=== PATIENT | male | born 1980 | race Caucasian/White ===

== ENCOUNTER → 2019-03-05 | Outpatient (CLI) | payer SELFPAY ==
[2017-04-29 21:44] VITALS: BMI 22.6
[2019-03-10 12:06] LABS: Alternaria tenuis <0.10 kU/L (Class 0); Ash, White <0.10 kU/L (Class 0); Aspergillus fumigatus <0.10 kU/L (Class 0); Bermuda Grass <0.10 kU/L (Class 0); Birch <0.10 kU/L (Class 0); Black Walnut <0.10 kU/L (Class 0); Cat Hair / Dander,Stand <0.10 kU/L (Class 0); Cedar, Mountain <0.10 kU/L (Class 0); Cladosporium herbarum <0.10 kU/L (Class 0); Cockroach, American <0.10 kU/L (Class 0); Cottonwood <0.10 kU/L (Class 0); D farinae Mite <0.10 kU/L (Class 0); D pteronyssinus <0.10 kU/L (Class 0); Dog Epithelia <0.10 kU/L (Class 0); Elm, American White <0.10 kU/L (Class 0); Immunoglobulin E < 2 IU/mL (6-495); Maple/Box Elder <0.10 kU/L (Class 0); Mulberry, White <0.10 kU/L (Class 0); Oak, White <0.10 kU/L (Class 0); Pecan <0.10 kU/L (Class 0); Penicillium Notatum <0.10 kU/L (Class 0); Pigweed, Rough <0.10 kU/L (Class 0); Ragweed, Short/Common <0.10 kU/L (Class 0); Russian Thistle <0.10 kU/L (Class 0); Sheep Sorrel <0.10 kU/L (Class 0); Sycamore, American <0.10 kU/L (Class 0); Timothy Grass <0.10 kU/L (Class 0)
[2019-03-10 12:49] LABS: Mouse Urine <0.10 kU/L (Class 0)
[2019-03-10 20:06] LABS: Chicken <0.10 kU/L (Class 0); Potato, White <0.10 kU/L (Class 0)
[2019-03-12 18:13] LABS: Beef <0.10 kU/L (Class 0); Gluten <0.10 kU/L (Class 0)
== END | disposition home or self-care (01) ==
PROVIDERS: Family Provider Family Medicine; PCP Family Medicine; Referring Provider Otolaryngology; Visit Provider Otolaryngology
DX: T78.40XA Allergy, unspecified, initial encounter (principal)
CPT/HCPCS: 36415; 82785; 86003

== ENCOUNTER 2022-08-25 07:53 | Emergency (ER) | payer MEDICAID, SELFPAY ==
[2022-08-25 07:54] VITALS: BP 111/64; PULSE 132; RESP 17; TEMP 35.6; O2SAT 98; BMI 22.1
--- NOTE | 2022-08-25 08:06 | EX.ED.DYSGE1 ---
HPI History of Present Illness Chief Complaint: Weakness Detail of Chief Complaint: Influenza a, nausea vomiting, generalized weakness Informant: patient Onset/Context/Timing Onset: Days Context: Sudden Onset Timing: Continuous and Waxes and wanes Quality: Flulike symptoms with nausea and vomiting Location: Respiratory GI Current Severity: Mild Maximum Severity: Severe Worsened by: Nothing specific Relieved by: Nothing Associated Symptoms Associated Symptoms: Thirst, dry mouth, lightheadedness Narrative Narrative: Patient is a 42-year-old male who states he was seen and diagnosed with influenza A. He was seen at outside facility on Sunday. He denies recent fever. He does report chills. He does report vomiting several times per day. He states he was prescribed Zofran ODT with no benefit. He has not had a bowel movement in 2 to 3 days. He does have mild upper respiratory symptoms. He has a mild cough. He denies headache, photophobia, neck pain or neck stiffness. He was unaware that he had a rash on his forearm. He denies dysuria, frequency, urgency or hematuria. He believes he has not urinated in 2 days. Prior similar symptoms: Yes Recent Illness/Hospitalization: Yes PFSH PFSH Medical History no medical history Home Medications NK 08/25/22 [History Last Taken Unknown] Allergy/AdvReac Type Severity Reaction Status Date / Time red dye Allergy Rash Verified 08/25/22 07:54 Surgical History no surgical history no surgical history Social History (Updated 08/25/22 @ 08:[address] Boris Rousseau MD) household members: none Smoking Status: Former smoker alcohol intake: current ROS ROS ED Constitutional Constitutional ED: Reports chills; Denies fever(s), subjective, sweats or weight loss Eyes Eyes: Denies blurry vision, change in vision or diplopia ENT ENT ED: Reports rhinorrhea and sore throat; Denies ear pain Cardiovascular Cardiovascular: Denies chest pain, orthopnea, palpitations, paroxysmal nocturnal dyspnea or racing heartbeat Respiratory/Chest Respiratory/Chest: Reports cough; Denies dyspnea, dyspnea on exertion, orthopnea or paroxysmal nocturnal dyspnea Gastrointestinal Gastrointestinal: Reports abdominal pain, constipation, nausea and vomiting; Denies diarrhea or melena Genitourinary Genitourinary ED: Denies dysuria or urinary frequency Musculoskeletal Musculoskeletal: Denies arthralgias, back pain, myalgias or neck pain Integumentary Denies Abrasions or rash Neurologic Neurologic: Denies headache(s), paresthesias or weakness Endocrine Endocrinology: Denies cold intolerance or heat intolerance Hematologic/Lymphatic Hematologic/Lymphatic: Reports systems reviewed and no addt'l complaints, except as documented EXAM Physical Exam Const Vital Signs: 08/25/22 07:54 08/25/22 08:00 08/25/22 08:22 Temperature 96.0 F L 96.0 F L Temperature Source Temporal Temporal Pulse Rate 132 H 72 Respiratory Rate 17 18 Respiratory Effort Normal Non-Labored Respiratory Pattern Normal Blood Pressure 111/64 111/64 Blood Pressure Mean 79 79 Pulse Ox 98 96 Oxygen Delivery Method Room Air Room Air Positive well nourished and well developed General Appearance ED: well developed and NAD; Negative for cyanotic or diaphoretic HEENT Reports dry mucous membranes Mouth ED: Yes dry mucous membranes Mouth: dry mucous membranes Eyes PERRL and EOMs intact bilaterally General Eye ED: Negative for pale conjunctiva or scleral icterus Neck no lymphadenopathy, supple and no JVD Resp normal respiratory effort and clear to auscultation bilaterally Cardio regular rhythm, S1 normal heart sound, S2 normal heart sound and no murmurs Rate: tachycardic GI non-tender, non-distended and no masses; Negative for hepatosplenomegaly Auscultation: hyperactive bowel sounds Palpation: soft Back/Spine no CVA tenderness Extremity normal to inspection General Extremety ED: Negative for edema or tenderness General Extremity: Negative for edema Neuro oriented x3, CN's II-XII intact bilaterally and no sensory deficits noted Sensorium / Orientation: alert Skin No no rashes or lesions noted, no wounds and No skin turgor normal Skin Narrative: Patient has a lenticular rash and has delayed capillary refill. Cap refill is 3 to 4 seconds. General Skin Exam: Negative for jaundice MDM MDM MDM Narrative Medical decision making narrative: Patient clinically is dehydrated, tachycardic and mottled. IV fluids were ordered. Since there is a history of acute kidney injury from prior nausea and vomiting will obtain basic metabolic panel to assess BUN/creatinine, CO2 anion gap and electrolytes. He will receive 4 mg of Zofran IV push for his nausea and vomiting. He was placed on the monitor. Suspect this is all related to influenza A. Patient did pass p.o. challenge. Patient has urinated after second liter of normal saline. Lab Data Attestation: I reviewed the patient's lab results. Lab results narrative: Hemoglobin is significantly elevated from baseline. Suspect this is due to hemoconcentration from dehydration. Basic metabolic panel reveals hyponatremia, hypokalemia and hypochloremia. CO2 is elevated. BUN and creatinine are elevated at 67 and 2.0 respectively. GFR is 39. BUN/creatinine ratio is greater than 33-1 which would indicate dehydration. BUN and creatinine are elevated from approximate 4 years ago. BUN/creatinine at that time was normal. Patient's laboratory findings are consistent with him not being able to drink or eat anything for the past 2 days. Labs: Laboratory Results - last 24 hr 08/25/22 08/25/22 08:16 08:16 WBC 9.2 RBC 6.87 H Hgb 20.6 H* Hct 58.0 H MCV 84.4 MCH 30.0 MCHC 35.5 RDW Std Deviation 39.9 RDW Coeff of Alex 13.2 Plt Count 353 MPV 10.9 Immature Gran % (Auto) 0.200 Neut % (Auto) 66.8 Lymph % (Auto) 15.8 L [place] % (Auto) 16.9 H Eos % (Auto) 0.1 Baso % (Auto) 0.2 Absolute Neuts (auto) 6.2 Absolute Lymphs (auto) 1.46 Nucleated RBC % 0 Sodium 129 L Potassium 3.3 L Chloride 81 L Carbon Dioxide 34.0 H Anion Gap 14 BUN 67 H Creatinine 2.00 H Estim Creat Clear Calc 42.82 Est GFR (MDRD) Af Amer 48 L Est GFR (MDRD) Non-Af 39 L BUN/Creatinine Ratio 33.5 H Glucose 198 H Calcium 10.1 Discharge Plan Triage Chief Complaint: Weakness ED Provider: Boris Rousseau Dx/Rx/DC Orders Clinical Impression: HUBER (acute kidney injury), Acute prerenal azotemia, Orthostatic hypotension, Severe dehydration, Influenza due to influenza virus, type A, human, Acute hyponatremia, Hypochloremia, Acute hypokalemia Instructions: Acute Kidney Failure Dc, ED Hypotension, Orthostatic Prescriptions: No Action NK Primary Care Provider: Rajesh Stahl Referrals: Rajesh Stahl MD [Primary Care Provider] - 3-5 Days Activity Restrictions/Additional Instructions: You will need to contact Dr. Stahl for repeat blood test in 3 to 5 days. If you begin to vomit again please come back Disposition Disposition: Home, Self Care
[2022-08-25] MEDS: 0.9% Normal Saline 1,000 ML 1000 ML IV ×2 (08:15→09:21)
[2022-08-25] MEDS: Ondansetron 4 MG/2 ML Vial IV (08:15)
[2022-08-25 08:22] VITALS: BP 111/64; PULSE 72; RESP 18; TEMP 35.6; O2SAT 96
[2022-08-25 08:29] LABS: Absolute Lymphocyte Count 1.46 X10^3/uL (0.83-4.51); Absolute Neutrophil Count 6.2 X10^3/uL (2.0-7.7); Basophil# 0.02 X10^3/uL; Basophil% 0.2 % (0-1); Eosinophil# 0.01 X10^3/uL; Eosinophils% 0.1 % (0-5); Hemoglobin 20.6 g/dL (13.0-16.5); Lymphocyte # 1.46 X10^3/ul (0.83-4.51); Lymphocyte % 15.8 % (19-41); Mean Corp Hgb Conc 35.5 g/dL (32-36); Mean Corpuscular Volume 84.4 fL (80-94); Mean Platelet Vol. 10.9 fl (6.2-12.0); Monocyte# 1.56 X10^3/uL; Monocyte% 16.9 % (0-10); NRBC Flagged by Analyzer 0 % (0-5); Neutrophil # 6.16 X10^3/uL (2.7-7.7); Neutrophil % 66.8 % (47-70); POSITIVE DIFFERENTIAL YES; Platelet Count 353 K/mm3 (150-450); RBC Distribution Width CV 13.2 % (11.6-14.6); RBC Distribution Width SD 39.9 fl (35.1-43.9); Red Blood Count 6.87 M/mm3 (4.6-6.2); White Blood Count 9.2 K/mm3 (4.4-11.0)
[2022-08-25 08:35] LABS: Differential Indicated SCAN CRITERIA MET
[2022-08-25 08:48] LABS: Anion Gap 14 (5-15); BUN 67 mg/dL (7-18); BUN/Creat Ratio 33.5 RATIO (10-20); Calcium,Total 10.1 mg/dL (8.5-10.1); Chloride 81 mmol/L (98-107); EST Glomerular Filtration Rate 39 mL/min (>60); Est Glom Filt Rate - Afr Amer 48 mL/min (>60); Estimated Creatinine Clearance 42.82 ml/min; Glucose 198 mg/dL (74-106); Potassium 3.3 mmol/L (3.5-5.1); Sodium Level 129 mmol/L (136-145)
[2022-08-25 10:04] VITALS: PULSE 77; RESP 16; O2SAT 98
[2022-08-25 10:27] VITALS: BP 125/88; PULSE 78; RESP 16; O2SAT 98
[2022-08-29 13:49] LABS: Pathologist Review Reviewed
== END 2022-08-25 10:28 | disposition home or self-care (01) ==
PROVIDERS: Emergency Provider Emergency Medicine; PCP Family Medicine; Visit Provider Emergency Medicine
DX: N17.9 Acute kidney failure, unspecified (principal); R79.89 Other specified abnormal findings of blood chemistry; I95.1 Orthostatic hypotension; E86.0 Dehydration; J10.1 Influenza due to other identified influenza virus with other respiratory manifestations; E87.1 Hypo-osmolality and hyponatremia; E87.6 Hypokalemia; E87.8 Other disorders of electrolyte and fluid balance, not elsewhere classified; Z87.891 Personal history of nicotine dependence
CPT/HCPCS: 80048; 85025; 96361; 96374; 99284; J7030; J2405

== ENCOUNTER 2022-11-23 09:10 | Emergency (ER) | payer OTHER, MEDICAID, SELFPAY ==
[2022-11-23 09:11] VITALS: BP 132/98; PULSE 75; RESP 16; TEMP 36.8; O2SAT 98; BMI 22.6
--- NOTE | 2022-11-23 09:36 | EDS_ITS ---
HPI History of Present Illness Chief Complaint: Nausea/Vomiting Narrative Narrative: 42-year-old male here for nausea and vomiting. Notes he has history of cyclic vomiting syndrome and vomiting for last several days. Symptoms are severe, constant with no alleviating factors PFSH PFSH Medical History no medical history Home Medications ondansetron 4 mg disintegrating tablet 4 mg PO Q8H PRN PRN Nausea #10 tabs 08/25/22 [Rx Last Taken Unknown] Allergy/AdvReac Type Severity Reaction Status Date / Time amoxicillin Allergy Rash Verified 11/23/22 09:13 red dye Allergy Rash Verified 08/25/22 07:54 Social History (Updated 08/25/22 @ 08:[address] Boris Rousseau MD) household members: none Smoking Status: Former smoker alcohol intake: current ROS ROS ED ROS Narrative Constitutional: Denies fever HEENT: Denies sore throat Neck: Denies neck pain Cardiovascular: Denies chest pain, syncope Respiratory: Denies shortness of breath GI: Endorses nausea and vomiting : Denies changes in urinary habits Musculoskeletal: Denies muscle or joint pain Neurologic: Denies numbness weakness or loss of sensation Skin denies rash EXAM Physical Exam Narrative Exam Narrative: Nursing triage notes reviewed, Vital signs reviewed Constitutional: please see mdm HENT: MMM Eyes: Pupils equal round and reactive to light, Extraocular muscles intact Neck: No stridor, no JVD, full neck ROM Lungs: Clear to auscultation, No wheezing or rales. No increased work of breathing, no conversational dyspnea, no accessory muscle use, no nasal flaring. No respiratory distress noted Heart: Regular rate and rhythm, No murmurs, No rubs and No gallops, 2+ distal pulses (radial, femoral, posterior tibial) in all extremities Abdomen: Soft, there is diffuse epigastric tenderness but no rigidity, rebound or guarding, no obvious peritoneal signs, no palpable pulsatile abdominal m asses, no auscultated abdominal bruit : No CVAT Extremities: No edema Neuro: No focal neurological deficits, cranial nerves II through XII intact, 5/5 strength in all extremities. Intact sensation to light touch in all extremities, 2+ reflexes bilateral patella dens. Normal gait. No ataxia. Skin: No rash or lesions noted Const Vital Signs: 11/23/22 09:11 11/23/22 11:28 Temperature 98.2 F Temperature Source Temporal Pulse Rate 75 65 Respiratory Rate 16 18 Blood Pressure 132/98 H 115/79 Blood Pressure Mean 109 91 Pulse Ox 98 100 Oxygen Delivery Method Room Air Room Air MDM MDM MDM Narrative Medical decision making narrative: Chief Complaint: External records reviewed: CT scan of the abdomen pelvis from 2014 shows mild left hydronephrosis 3.5 mm calculus I considered the following differential diagnosis: Dehydration, HUBER, acute surgical process the abdomen pelvis The patient abdominal exam was benign and not consistent with acute surgical pathology I obtained a broad lab work-up to further elucidate the etiology of patient complaints and to discern if the patient any life limiting etiology. Labs remarkable for evidence of acute pancreatitis but no evidence of obstructive hepatobiliary pathology. BMP showed evidence of hypokalemia consistent with vomiting no evidence of myocardial ischemia. Chest x-ray showed no evidence of Vesta-Lance tear or pneumomediastinum. Patient's vital signs improved. Was able to tolerate p.o. He is appropriate discharge home with pain medicine, clear liquid diet and follow-up with outpatient PCP and gastroenterology I treated the patient with IV nausea medicine, IV fluids. Factors affecting care: History of cyclic vomiting, acute renal failure, hypokalemia, GERD Social determinants of health: Current alcohol intake History obtained from others: Shared decision making: I will have a discussion with the patient and or visitors regarding risk/benefits of further testing or admission. They will be made aware of of the risk/benefits inherent in this decision they will be given the opportunity to voice understanding. Consults: None Lab Data Attestation: I reviewed the patient's lab results. Lab results narrative: CBC with leukocytosis suggestive of systemic inflammation, no anemia or thrombocytopenia BMP with moderate hypokalemia suggestive of dehydration likely secondary to nausea vomiting, no acute kidney injury, no elevated anion gap to suggest endorgan hypoperfusion LFTs show no evidence of hepatobiliary pathology. Troponin is negative, no evidence of myocardial ischemia Patient's lipase is elevated consistent with acute pancreatitis Labs: Laboratory Results - last 24 hr 11/23/22 11/23/22 11/23/22 09:55 09:55 09:55 WBC 16.7 H RBC 5.81 Hgb 17.2 H Hct 49.5 MCV 85.2 MCH 29.6 MCHC 34.7 RDW Std Deviation 38.1 RDW Coeff of Alex 12.4 Plt Count 389 MPV 11.0 Immature Gran % (Auto) 0.500 Neut % (Auto) 81.5 H Lymph % (Auto) 9.4 L [place] % (Auto) 8.4 Eos % (Auto) 0.0 Baso % (Auto) 0.2 Absolute Neuts (auto) 13.6 H Absolute Lymphs (auto) 1.58 Nucleated RBC % 0 Sodium 135 L Potassium 2.8 L Chloride 87 L Carbon Dioxide 37.0 H Anion Gap 11 BUN 27 H Creatinine 1.29 Estim Creat Clear Calc 67.69 Est GFR (MDRD) Af Amer 79 Est GFR (MDRD) Non-Af 65 BUN/Creatinine Ratio 20.9 H Glucose 170 H Calcium 10.8 H Total Bilirubin 0.80 Direct Bilirubin 0.21 AST 24 ALT 31 Alkaline Phosphatase 87 Troponin I High Sens 10 Total Protein 8.7 H Albumin 4.9 Globulin 3.8 Lipase 1227 H Radiography Chest X-Ray - ED: Read by ED Physician Diagnostic Testing: Clinical Impression(s) from Imaging Studies Chest X-Ray 11/23/22 10:49 IMPRESSION: No radiographic evidence of acute cardiopulmonary disease. Electronically Signed: Ct Alejandro MD at 11:05 EDT , I have personally reviewed the patient's chest x-ray. Chest x-ray is unremarkable for pulmonary edema, pneumothorax, pneumonia or focal cardiopulmonary abnormality. EKG Initial EKG: Attestation: I personally reviewed and interpreted this EKG as follows: Comments: EKG shows normal sinus rhythm, normal axis, normal intervals, no ST Discharge Plan Triage Chief Complaint: Nausea/Vomiting ED Provider: Chicho Petit Dx/Rx/DC Orders Clinical Impression: Hypokalemia, Hyponatremia, Leukocytosis, Nausea & vomiting, Acute pancreatitis Prescriptions: No Action ondansetron [ondansetron] 4 mg tablet,disintegrating 4 mg PO Q8H PRN PRN (Reason: Nausea) Qty: 10 0RF Stand Alone Forms: ED Work / School Excuse Primary Care Provider: Rajesh Stahl Referrals: Rajesh Stahl MD [Primary Care Provider] - Activity Restrictions/Additional Instructions: Please take Zofran as needed for nausea or vomiting. Please take Tylenol and ibuprofen as needed for pain control. Please return to the emergency department if pain worsens, is unbearable. Please return if he cannot tolerate medicine by mouth. Disposition Disposition: Home, Self Care
[2022-11-23 10:11] LABS: Absolute Lymphocyte Count 1.58 X10^3/uL (0.83-4.51); Absolute Neutrophil Count 13.6 X10^3/uL (2.0-7.7); Basophil# 0.04 X10^3/uL; Basophil% 0.2 % (0-1); Hematocrit 49.5 % (40-54); Hemoglobin 17.2 g/dL (13.0-16.5); Lymphocyte # 1.58 X10^3/ul (0.83-4.51); Lymphocyte % 9.4 % (19-41); Mean Corp Hgb Conc 34.7 g/dL (32-36); Mean Corpuscular Hgb 29.6 pg (27.0-32.0); Mean Corpuscular Volume 85.2 fL (80-94); Monocyte% 8.4 % (0-10); NRBC Flagged by Analyzer 0 % (0-5); Neutrophil # 13.63 X10^3/uL (2.7-7.7); Neutrophil % 81.5 % (47-70); Platelet Count 389 K/mm3 (150-450); RBC Distribution Width CV 12.4 % (11.6-14.6); RBC Distribution Width SD 38.1 fl (35.1-43.9); Red Blood Count 5.81 M/mm3 (4.6-6.2); White Blood Count 16.7 K/mm3 (4.4-11.0)
[2022-11-23 10:16] LABS: Anion Gap 11 (5-15); BUN 27 mg/dL (7-18); BUN/Creat Ratio 20.9 RATIO (10-20); Calcium,Total 10.8 mg/dL (8.5-10.1); Chloride 87 mmol/L (98-107); Creatinine, Serum 1.29 mg/dL (0.70-1.30); EST Glomerular Filtration Rate 65 mL/min (>60); Est Glom Filt Rate - Afr Amer 79 mL/min (>60); Estimated Creatinine Clearance 67.69 ml/min; Glucose 170 mg/dL (74-106); Potassium 2.8 mmol/L (3.5-5.1); Sodium Level 135 mmol/L (136-145)
--- NOTE | 2022-11-23 10:41 | EKG12_ITS ---
Test Reason : GENERAL Blood Pressure : / mmHG Vent. Rate : 060 BPM Atrial Rate : 000 BPM P-R Int : 000 ms QRS Dur : 084 ms QT Int : 450 ms P-R-T Axes : 000 015 016 degrees QTc Int : 450 ms Junctional rhythm Septal infarct , age undetermined Abnormal ECG Confirmed by ELIAS IBARRA, TERESA ([id number]), editor & co founder JANES MARADIAGA ([id number]) on 11/24/2022 10:48:51 AM Referred By: Confirmed By:TERESA GRIFFIN MD
[2022-11-23] MEDS: Ondansetron 4 MG/2 ML Vial IV (10:45)
[2022-11-23] MEDS: 0.9% Normal Saline 1,000 ML 1000 ML IV (10:45)
[2022-11-23] MEDS: Ketorolac 15 MG/ML Vial IV (10:49)
--- NOTE | 2022-11-23 10:49 | RAD_ITS ---
INDICATION: epigastric pain, assess for pneumomediastinum EXAMINATION/TECHNIQUE: X-RAY - XR Chest 1 View COMPARISON: None. FINDINGS: LINES/DEVICES: None. LUNGS: No consolidation, edema or effusion. No pneumothorax. MEDIASTINUM AND CARDIOVASCULAR STRUCTURES: Cardiac silhouette not enlarged. Central airways and mediastinal contour are unremarkable. BONES AND SOFT TISSUES: Unremarkable. RAD/Chest 1 View (Portable) IMPRESSION: No radiographic evidence of acute cardiopulmonary disease. Electronically Signed: Ct Alejandro MD at 11:05 EDT ,
[2022-11-23 11:20] LABS: AST(SGOT) 24 U/L (15-37); Alanine Aminotransfer ALT/SGPT 31 U/L (16-61); Albumin, Serum 4.9 g/dL (3.2-5.0); Alkaline Phosphatase 87 U/L (45-117); Bilirubin, Direct 0.21 mg/dL (0.00-0.30); Globulin 3.8 g/dL (2.2-4.2); Lipase 1227 U/L (73-393); Protein, Total 8.7 g/dL (6.4-8.2); Troponin-I HS 10 pg/mL (3.0-78.0)
[2022-11-23] MEDS: Potassium Chloride 10mEq/100mL 10 MEQ/100 ML IV.SOLN. 100 MEQ IV BOLUS ×2 (11:22→12:29)
[2022-11-23] MEDS: Famotidine 200 MG/20 ML MDV 20 MG in 0.9% Normal Saline (Pres. free 8 ML 300 MG IV (11:22)
[2022-11-23 11:28] VITALS: BP 115/79; PULSE 65; RESP 18; O2SAT 100
[2022-11-23] MEDS: Potassium Chloride Oral Tablet 20 MEQ 40 MEQ PO (12:37)
[2022-11-23 13:46] VITALS: BP 118/76; PULSE 62; RESP 16; O2SAT 98
== END 2022-11-23 13:53 | disposition home or self-care (01) ==
PROVIDERS: Emergency Provider Emergency Medicine; PCP Family Medicine; Visit Provider Emergency Medicine
DX: K85.90 Acute pancreatitis without necrosis or infection, unspecified (principal); E87.6 Hypokalemia; E87.1 Hypo-osmolality and hyponatremia; D72.829 Elevated white blood cell count, unspecified; Z87.891 Personal history of nicotine dependence
CPT/HCPCS: 71045; 80048; 80076; 83690; 84484; 85025; 93005; 96365; 96366; 96375; 99285; J7030; A4216; J2405; J3490

== ENCOUNTER 2023-11-05 18:58 | Emergency (ER) | payer SELFPAY ==
[2023-11-05 18:59] VITALS: BP 120/80; PULSE 112; RESP 18; TEMP 36.4; O2SAT 98; BMI 23.4
[2023-11-05] MEDS: 0.9% Normal Saline (1000mL) 1,000 ML 999 ML IV ×2 (20:38→21:19)
[2023-11-05] MEDS: Ondansetron 4 MG/2 ML Vial IV (20:38)
[2023-11-05] MEDS: Ketorolac 15 MG/ML Vial IV (20:39)
[2023-11-05 20:40] VITALS: RESP 18
--- NOTE | 2023-11-05 20:47 | EDS_ITS ---
HPI <KAILEE Campos - Last Filed: 11/05/23 22:00> HPI - GI History of Present Illness Chief Complaint: Abd Pain Narrative Narrative: Patient presenting today due to epigastric abdominal pain, nausea, and vomiting that he has had since Sunday. He reports that he has a history of pancreatitis and this feels similar. He is unsure what caused his pancreatitis in the past and denies a history of alcohol use. He reports that he feels very dehydrated and does not think that he has urinated since yesterday. He reports that his last bowel movement was yesterday and was normal. He denies fevers, hematemesis, melena, hematochezia, diarrhea, and urinary symptoms. He also reports a wound above his right eyebrow and is concerned that he has MRSA as he has a history of this. He denies any history of drug use. COUNTS INCLUDE 234 BEDS AT THE [facility] <KAILEE Campos - Last Filed: 11/05/23 22:00> COUNTS INCLUDE 234 BEDS AT THE [facility] Home Medications doxycycline monohydrate 100 mg capsule 100 mg PO BID #14 CAPSULES 11/06/23 [Rx Last Taken Unknown] ondansetron 4 mg disintegrating tablet 4 mg PO Q8H PRN PRN Nausea #10 tabs 11/06/23 [Rx Last Taken Unknown] pantoprazole 40 mg tablet,delayed release 40 mg PO DAILY #30 tabs 11/06/23 [Rx Last Taken Unknown] Allergy/AdvReac Type Severity Reaction Status Date / Time amoxicillin Allergy Rash Verified 11/23/22 09:13 red dye Allergy Rash Verified 08/25/22 07:54 Social History household members: none Smoking Status: Former smoker alcohol intake: current ROS <KAILEE Campos - Last Filed: 11/05/23 22:00> ROS ED Constitutional Constitutional ED: Denies chills or fever(s) Cardiovascular Cardiovascular: Denies chest pain Respiratory/Chest Respiratory/Chest: Denies cough or dyspnea Gastrointestinal Gastrointestinal: Reports abdominal pain, nausea and vomiting Genitourinary Genitourinary ED: Denies dysuria, hematuria or urinary urgency Musculoskeletal Musculoskeletal: Denies arthralgias or myalgias Integumentary Denies rash Neurologic Neurologic: Denies weakness EXAM <KAILEE Campos - Last Filed: 11/05/23 22:00> Physical Exam Const Vital Signs: 11/05/23 18:59 11/05/23 20:40 11/05/23 22:59 Temperature 97.5 F L Temperature Source Temporal Pulse Rate 112 H 74 Respiratory Rate 18 18 17 Blood Pressure 120/80 106/64 Blood Pressure Mean 93 78 Pulse Ox 98 100 Oxygen Delivery Method Room Air Room Air Positive well nourished, well developed and no apparent distress General Appearance ED: well developed HEENT Reports normocephalic and head/scalp atraumatic Mouth ED: Yes moist mucous membranes normal Eyes PERRL and EOMs intact bilaterally Neck full ROM and supple Chest Wall inspection of chest normal Resp normal respiratory effort and clear to auscultation bilaterally Cardio regular rate and regular rhythm GI soft to palpation, non-distended and no masses GI Narrative: Epigastric tenderness to palpation, no rigidity, guarding, or peritoneal signs. Back/Spine normal ROM and normal to inspection Extremity normal to inspection and full ROM Neuro oriented x3, CN's II-XII intact bilaterally, moves all extremities, no focal motor deficits and no sensory deficits noted Sensorium / Orientation: awake and alert Psych mental status grossly normal and thought process normal Skin no rashes or lesions noted and no wounds <Dr. Satya Collazo DO - Last Filed: 11/06/23 01:07> Physical Exam Const Vital Signs: 11/05/23 18:59 11/05/23 20:40 11/05/23 22:59 Temperature 97.5 F L Temperature Source Temporal Pulse Rate 112 H 74 Respiratory Rate 18 18 17 Blood Pressure 120/80 106/64 Blood Pressure Mean 93 78 Pulse Ox 98 100 Oxygen Delivery Method Room Air Room Air [facility] <KAILEE Campos - Last Filed: 11/05/23 22:00> [facility] Narrative Medical decision making narrative: Patient presenting with epigastric abdominal pain, nausea, and vomiting that he has had since Sunday. His symptoms are consistent with his previous pancreatitis. He is tachycardic and does appear to be uncomfortable. Epigastric tenderness to palpation. Labs will be obtained to rule out leukocytosis, anemia, electrolyte abnormality, HUBER, and pancreatitis. CT of the abdomen pelvis to be obtained to rule out abdominal etiology. He was given IV fluids, Zofran, and Toradol. He does have an HUBER, he will be given additional IV fluids. 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 He does report improvement of his nausea, vomiting, and abdominal pain. CT scan is pending. He will receive a p.o. challenge, he will be given a prescription for antiemetics. Lab Data Attestation: I reviewed the patient's lab results. Lab results narrative: Sodium 135, potassium 3.3, BUN 39, creatinine 2.4, GFR 36, total bilirubin 1.2, Labs: Laboratory Results - last 24 hr 11/05/23 11/05/23 11/05/23 20:24 20:24 20:53 WBC Cancelled Cancelled Corrected WBC Cancelled Cancelled RBC Cancelled Cancelled Hgb Cancelled Cancelled Hct Cancelled Cancelled MCV Cancelled Cancelled MCH Cancelled Cancelled MCHC Cancelled Cancelled RDW Std Deviation Cancelled Cancelled RDW Coeff of Alex Cancelled Cancelled Plt Count Cancelled Cancelled MPV Cancelled Cancelled Immature Gran % (Auto) Cancelled Cancelled Neut % (Auto) Cancelled Cancelled Lymph % (Auto) Cancelled Cancelled [place] % (Auto) Cancelled Cancelled Eos % (Auto) Cancelled Cancelled Baso % (Auto) Cancelled Cancelled Absolute Neuts (auto) Cancelled Cancelled Absolute Lymphs (auto) Cancelled Cancelled Total Counted Cancelled Cancelled Neutrophils % (Manual) Cancelled Cancelled Band Neutrophils % Cancelled Cancelled Lymphocytes % (Manual) Cancelled Cancelled Monocytes % (Manual) Cancelled Cancelled Eosinophils % (Manual) Cancelled Cancelled Basophils % (Manual) Cancelled Cancelled Metamyelocytes % Cancelled Cancelled Myelocytes % Cancelled Cancelled Promyelocytes % Cancelled Cancelled Blast Cells % Cancelled Cancelled Plasma Cell % (Manual) Cancelled Cancelled Other Cells % Cancelled Cancelled Nucleated RBC % Cancelled Cancelled Nucleated RBCs/100 WBC Cancelled Cancelled Differential Comment Cancelled Cancelled Diff Path Review Cancelled Cancelled Hypersegmented Neuts Cancelled Cancelled Atypical Lymphocytes Cancelled Cancelled Reactive Lymphocytes Cancelled Cancelled Smudge Cells Cancelled Cancelled Toxic Granulation Cancelled Cancelled Toxic Vacuolation Cancelled Cancelled Dohle Bodies Cancelled Cancelled Marilee Rods Cancelled Cancelled Platelet Estimate Cancelled Cancelled Plt Morphology Comment Cancelled Cancelled RBC Morphology Cancelled Cancelled Cancelled Polychromasia Cancelled Hypochromasia Cancelled Poikilocytosis Cancelled Basophilic Stippling Cancelled Anisocytosis Cancelled Microcytosis Cancelled Macrocytosis Cancelled Spherocytes Cancelled Sickle Cells Cancelled Target Cells Cancelled Tear Drop Cells Cancelled Ovalocytes Cancelled Stomatocytes Cancelled [place] Bodies Cancelled [place] Cells Cancelled Bite Cells Cancelled Crenated Cell Cancelled Acanthocytes (Spur) Cancelled Rouleaux Cancelled Schistocytes Cancelled Sodium 135 L Potassium 3.3 L Chloride 96 L Carbon Dioxide 27.0 Anion Gap 12 BUN 39 H Creatinine 2.14 H Estim Creat Clear Calc 40.58 Est GFR (MDRD) Af Amer 44 L Est GFR (MDRD) Non-Af 36 L BUN/Creatinine Ratio 18.2 Glucose 153 H Calcium 11.6 H Total Bilirubin 1.20 H AST 14 L ALT 18 Alkaline Phosphatase 110 Total Protein 9.3 H Albumin 4.7 Globulin 4.6 H Albumin/Globulin Ratio 1.0 Lipase 43 Urine Color Urine Clarity Urine pH Ur Specific [place] Urine Protein Urine Glucose (UA) Urine Ketones Urine Occult Blood Urine Nitrite Urine Bilirubin Urine Urobilinogen Ur Leukocyte Esterase Urine RBC Urine WBC Ur Squamous Epith Cells Urine Bacteria Hyaline Casts Urine Mucus 11/05/23 11/05/23 11/05/23 20:53 21:21 23:20 WBC 13.8 H Corrected WBC RBC 5.52 Hgb 16.3 Hct 47.6 MCV 86.2 MCH 29.5 MCHC 34.2 RDW Std Deviation 38.2 RDW Coeff of Alex 12.1 Plt Count 252 MPV 11.0 Immature Gran % (Auto) 0.400 Neut % (Auto) 82.2 H Lymph % (Auto) 8.6 L [place] % (Auto) 8.4 Eos % (Auto) 0.1 Baso % (Auto) 0.3 Absolute Neuts (auto) 11.4 H Absolute Lymphs (auto) 1.19 Total Counted Neutrophils % (Manual) Band Neutrophils % Lymphocytes % (Manual) Monocytes % (Manual) Eosinophils % (Manual) Basophils % (Manual) Metamyelocytes % Myelocytes % Promyelocytes % Blast Cells % Plasma Cell % (Manual) Other Cells % Nucleated RBC % 0 Nucleated RBCs/100 WBC Differential Comment SCANNED Diff Path Review Hypersegmented Neuts Atypical Lymphocytes Reactive Lymphocytes Smudge Cells Toxic Granulation Toxic Vacuolation Dohle Bodies Marilee Rods Platelet Estimate Plt Morphology Comment RBC Morphology Cancelled Polychromasia Cancelled Hypochromasia Cancelled Poikilocytosis Cancelled Basophilic Stippling Cancelled Anisocytosis Cancelled Microcytosis Cancelled Macrocytosis Cancelled Spherocytes Cancelled Sickle Cells Cancelled Target Cells Cancelled Tear Drop Cells Cancelled Ovalocytes Cancelled Stomatocytes Cancelled [place] Bodies Cancelled [place] Cells Cancelled Bite Cells Cancelled Crenated Cell Cancelled Acanthocytes (Spur) Cancelled Rouleaux Cancelled Schistocytes Cancelled Sodium Potassium Chloride Carbon Dioxide Anion Gap BUN Creatinine Estim Creat Clear Calc Est GFR (MDRD) Af Amer Est GFR (MDRD) Non-Af BUN/Creatinine Ratio Glucose Calcium Total Bilirubin AST ALT Alkaline Phosphatase Total Protein Albumin Globulin Albumin/Globulin Ratio Lipase Urine Color [place] Urine Clarity Cloudy Urine pH 5.0 Ur Specific [place] 1.025 Urine Protein 30 H Urine Glucose (UA) Normal Urine Ketones 50 H Urine Occult Blood 10 H Urine Nitrite Negative Urine Bilirubin 1 H Urine Urobilinogen 1 H Ur Leukocyte Esterase 25 H Urine RBC 0 SEEN Urine WBC 0 SEEN Ur Squamous Epith Cells 0 SEEN Urine Bacteria 2+ Hyaline Casts 0-5 SEEN Urine Mucus 0 SEEN Radiography Diagnostic Testing: Clinical Impression(s) from Imaging Studies Abdomen/Pelvis CT 11/05/23 21:16 IMPRESSION: No acute findings in the abdomen or pelvis. Colonic fecal burden consistent with clinical constipation. Electronically Signed: Luc Wolf MD at 22:15 EST Reading Location ID and State: [facility] / [place] Tel , Service support , <Dr. Satya Collazo, DO - Last Filed: 11/06/23 01:07> [facility] Narrative Medical decision making narrative: Patient presenting with epigastric abdominal pain, nausea, and vomiting that he has had since Sunday. His symptoms are consistent with his previous pancreatitis. He is tachycardic and does appear to be uncomfortable. Epigastric tenderness to palpation. Labs will be obtained to rule out leukocytosis, anemia, electrolyte abnormality, HUBER, and pancreatitis. CT of the abdomen pelvis to be obtained to rule out abdominal etiology. He was given IV fluids, Zofran, and Toradol. He does have an HUBER, he will be given additional IV fluids. 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 He does report improvement of his nausea, vomiting, and abdominal pain. CT scan is pending. He will receive a p.o. challenge, he will be given a prescription for antiemetics. 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 I perform my own [id number] evaluation. I agree with the plan of work-up. Epigastric pain and vomiting since Sunday no urination since yesterday. Nonbloody stools. History of pancreatitis previous alcohol use. This feels similar. Also reports drainage from his forehead after picking his head 3 days ago. No fevers. Exam swelling above the right brow there was active drainage spontaneously from the wound. No surrounding erythema. Dry mucosal membranes. Abdomen epigastric tenderness there is no guarding or rebound. Patient was given 2 L IV fluids due to dry mucosal membranes. Labs with HUBER creatinine 2.14 up from 1.29 a year ago. Likely prerenal. Fluids were given. Lipase normal. Discomfort therefore CT noncontrast obtained showing no acute process. Considered admission due to HUBER, however patient adamant out being will go home due working and taking care of his child. Additional Tylenol was given, doxycycline started for abscess with spontaneous drainage. Tolerating oral fluids on reevaluation. Zofran also sent to his pharmacy. Strict return precautions. Lab Data Labs: Laboratory Results - last 24 hr 11/05/23 11/05/23 11/05/23 20:24 20:24 20:53 WBC Cancelled Cancelled Corrected WBC Cancelled Cancelled RBC Cancelled Cancelled Hgb Cancelled Cancelled Hct Cancelled Cancelled MCV Cancelled Cancelled MCH Cancelled Cancelled MCHC Cancelled Cancelled RDW Std Deviation Cancelled Cancelled RDW Coeff of Alex Cancelled Cancelled Plt Count Cancelled Cancelled MPV Cancelled Cancelled Immature Gran % (Auto) Cancelled Cancelled Neut % (Auto) Cancelled Cancelled Lymph % (Auto) Cancelled Cancelled [place] % (Auto) Cancelled Cancelled Eos % (Auto) Cancelled Cancelled Baso % (Auto) Cancelled Cancelled Absolute Neuts (auto) Cancelled Cancelled Absolute Lymphs (auto) Cancelled Cancelled Total Counted Cancelled Cancelled Neutrophils % (Manual) Cancelled Cancelled Band Neutrophils % Cancelled Cancelled Lymphocytes % (Manual) Cancelled Cancelled Monocytes % (Manual) Cancelled Cancelled Eosinophils % (Manual) Cancelled Cancelled Basophils % (Manual) Cancelled Cancelled Metamyelocytes % Cancelled Cancelled Myelocytes % Cancelled Cancelled Promyelocytes % Cancelled Cancelled Blast Cells % Cancelled Cancelled Plasma Cell % (Manual) Cancelled Cancelled Other Cells % Cancelled Cancelled Nucleated RBC % Cancelled Cancelled Nucleated RBCs/100 WBC Cancelled Cancelled Differential Comment Cancelled Cancelled Diff Path Review Cancelled Cancelled Hypersegmented Neuts Cancelled Cancelled Atypical Lymphocytes Cancelled Cancelled Reactive Lymphocytes Cancelled Cancelled Smudge Cells Cancelled Cancelled Toxic Granulation Cancelled Cancelled Toxic Vacuolation Cancelled Cancelled Dohle Bodies Cancelled Cancelled [place] Rods Cancelled Cancelled Platelet Estimate Cancelled Cancelled Plt Morphology Comment Cancelled Cancelled RBC Morphology Cancelled Cancelled Cancelled Polychromasia Cancelled Hypochromasia Cancelled Poikilocytosis Cancelled Basophilic Stippling Cancelled Anisocytosis Cancelled Microcytosis Cancelled Macrocytosis Cancelled Spherocytes Cancelled Sickle Cells Cancelled Target Cells Cancelled Tear Drop Cells Cancelled Ovalocytes Cancelled Stomatocytes Cancelled [place] Bodies Cancelled [place] Cells Cancelled Bite Cells Cancelled Crenated Cell Cancelled Acanthocytes (Spur) Cancelled Rouleaux Cancelled Schistocytes Cancelled Sodium 135 L Potassium 3.3 L Chloride 96 L Carbon Dioxide 27.0 Anion Gap 12 BUN 39 H Creatinine 2.14 H Estim Creat Clear Calc 40.58 Est GFR (MDRD) Af Amer 44 L Est GFR (MDRD) Non-Af 36 L BUN/Creatinine Ratio 18.2 Glucose 153 H Calcium 11.6 H Total Bilirubin 1.20 H AST 14 L ALT 18 Alkaline Phosphatase 110 Total Protein 9.3 H Albumin 4.7 Globulin 4.6 H Albumin/Globulin Ratio 1.0 Lipase 43 Urine Color Urine Clarity Urine pH Ur Specific [place] Urine Protein Urine Glucose (UA) Urine Ketones Urine Occult Blood Urine Nitrite Urine Bilirubin Urine Urobilinogen Ur Leukocyte Esterase Urine RBC Urine WBC Ur Squamous Epith Cells Urine Bacteria Hyaline Casts Urine Mucus 11/05/23 11/05/23 11/05/23 20:53 21:21 23:20 WBC 13.8 H Corrected WBC RBC 5.52 Hgb 16.3 Hct 47.6 MCV 86.2 MCH 29.5 MCHC 34.2 RDW Std Deviation 38.2 RDW Coeff of Alex 12.1 Plt Count 252 MPV 11.0 Immature Gran % (Auto) 0.400 Neut % (Auto) 82.2 H Lymph % (Auto) 8.6 L [place] % (Auto) 8.4 Eos % (Auto) 0.1 Baso % (Auto) 0.3 Absolute Neuts (auto) 11.4 H Absolute Lymphs (auto) 1.19 Total Counted Neutrophils % (Manual) Band Neutrophils % Lymphocytes % (Manual) Monocytes % (Manual) Eosinophils % (Manual) Basophils % (Manual) Metamyelocytes % Myelocytes % Promyelocytes % Blast Cells % Plasma Cell % (Manual) Other Cells % Nucleated RBC % 0 Nucleated RBCs/100 WBC Differential Comment SCANNED Diff Path Review Hypersegmented Neuts Atypical Lymphocytes Reactive Lymphocytes Smudge Cells Toxic Granulation Toxic Vacuolation Dohle Bodies Marilee Rods Platelet Estimate Plt Morphology Comment RBC Morphology Cancelled Polychromasia Cancelled Hypochromasia Cancelled Poikilocytosis Cancelled Basophilic Stippling Cancelled Anisocytosis Cancelled Microcytosis Cancelled Macrocytosis Cancelled Spherocytes Cancelled Sickle Cells Cancelled Target Cells Cancelled Tear Drop Cells Cancelled Ovalocytes Cancelled Stomatocytes Cancelled [place] Bodies Cancelled [place] Cells Cancelled Bite Cells Cancelled Crenated Cell Cancelled Acanthocytes (Spur) Cancelled Rouleaux Cancelled Schistocytes Cancelled Sodium Potassium Chloride Carbon Dioxide Anion Gap BUN Creatinine Estim Creat Clear Calc Est GFR (MDRD) Af Amer Est GFR (MDRD) Non-Af BUN/Creatinine Ratio Glucose Calcium Total Bilirubin AST ALT Alkaline Phosphatase Total Protein Albumin Globulin Albumin/Globulin Ratio Lipase Urine Color [place] Urine Clarity Cloudy Urine pH 5.0 Ur Specific [place] 1.025 Urine Protein 30 H Urine Glucose (UA) Normal Urine Ketones 50 H Urine Occult Blood 10 H Urine Nitrite Negative Urine Bilirubin 1 H Urine Urobilinogen 1 H Ur Leukocyte Esterase 25 H Urine RBC 0 SEEN Urine WBC 0 SEEN Ur Squamous Epith Cells 0 SEEN Urine Bacteria 2+ Hyaline Casts 0-5 SEEN Urine Mucus 0 SEEN Radiography Diagnostic Testing: Clinical Impression(s) from Imaging Studies Abdomen/Pelvis CT 11/05/23 21:16 IMPRESSION: No acute findings in the abdomen or pelvis. Colonic fecal burden consistent with clinical constipation. Electronically Signed: Luc Wolf MD at 22:15 EST , Discharge Plan Triage Chief Complaint: Abd Pain ED Midlevel Provider: Amber Vargas ED Provider: Satya Collazo Dx/Rx/DC Orders Clinical Impression: HUBER (acute kidney injury), Facial abscess, Acute dehydration, Nausea & vomiting, Abdominal pain Instructions: ED Abscess Antibiotic Treatment Only, ED Dehydration (Adult), ED Vomiting (Adult) Prescriptions: New doxycycline monohydrate 100 mg capsule 100 mg PO BID Qty: 14 0RF pantoprazole 40 mg tablet,delayed release (DR/EC) 40 mg PO DAILY Qty: 30 0RF ondansetron [ondansetron] 4 mg tablet,disintegrating 4 mg PO Q8H PRN PRN (Reason: Nausea) Qty: 10 0RF Discontinued ondansetron [ondansetron] 4 mg tablet,disintegrating 4 mg PO Q8H PRN PRN (Reason: Nausea) Qty: 10 0RF Primary Care Provider: Rajesh Stahl Referrals: Rajesh Stahl MD [Primary Care Provider] - 1 Week Activity Restrictions/Additional Instructions: Your lipase is normal. Your creatinine is 2.14 today. 1.29 a year ago. You are given 2 L of fluid. Follow-up with your doctor recheck lab work continue oral fluids for hydration. Take medication as prescribed. With your antibiotic take plenty of water to avoid stomach issues. If symptoms recur or worsens, return to ED for reevaluation. Disposition Disposition: Home, Self Care Discharge Date/Time: 11/06/23 00:24
--- OUTSIDE RECORDS SUMMARY | 2023-11-05 20:50 | XMS RPT_ITS | CCD ---
Author Name Unknown Address [address] [place] [address] Organization [facility] Care Team Providers Care [employer] Architect Name Role Phone Jere Ramsey MD Primary Care Provider [phone] JERE RAMSEY Primary Care Unavailable DENVER FERNÁNDEZ Referring Unavailable JERE RAMSEY Primary Care Unavailable JERE RAMSEY Primary Care Unavailable JERE RAMSEY Primary Care Unavailable JERE RAMSEY Attending Unavailable JERE RAMSEY Referring Unavailable JERE RAMSEY Primary Care Unavailable WEIGHT, CHRISTOPHER Attending Unavailable KEVIN ADAMS Attending UnavailJERE Ye Primary Care Unavailable WEIGHT, CHRISTOPHER Referring Unavailable JERE RAMSEY Primary Care Unavailable KARINA PARK Referring Unavailable JERE RAMSEY Primary Care Unavailable KEVIN ADAMS Attending UnavailKEVIN Marroquin Admitting UnavailJERE Ye Primary Care Unavailable KEVIN ADAMS Attending UnavailKEVIN Marroquin Admitting Unavailabl JERE Spencer Primary Care Unavailable JERE RAMSEY Primary Care Unavailable DENVER FERNÁNDEZ Referring Unavailable Allergies Allergy Classification Reported Allergen(s) Allergy Type Date of Onset Reaction(s) Facility (14 sources) Amoxicillin; Translations: [AMOXICILLIN] Drug Allergy 7 [facility] Work Phone: (14 sources) ascorbic acid / cholecalciferol / niacin / riboflavin / thiamine / vitamin a / vitamin b12 / vitamin b6 / vitamin e; Translations: [PEDIATRIC MULTIVITAMIN] Drug Allergy 5 [facility] Work Phone: (14 sources) Contrast media; Translations: [RED DYE] Propensity to adverse reactions 7 Rash [facility] Work Phone: (14 sources) Sulfamethoxazole / Trimethoprim; Translations: [SULFAMETHOXAZOLE-TR IMETHOPRIM] Drug Allergy 8 Hives [facility] Work Phone: Medications Current Medications Medication Drug Class(es) Dates Sig (Normalized) Sig (Original) doxycycline hyclate 100 mg oral capsule (1 source) Tetracycline-clas s Drug Start: 05-30-2022 End: 06-04-2022 take 1 capsule by mouth twice daily doxycycline hyclate (VIBRAMYCIN) 100 mg capsule Take 1 capsule by mouth twice daily for 5 days. 10 capsule 0 05/30/2022 06/04/2022 Active Completed/Discontinued Medications Medication Drug Class(es) Dates Sig (Normalized) Sig (Original) acetaminophen 500 mg oral tablet (4 sources) Start: 05-23-2022 take 2 tablets by mouth every six hours as needed acetaminophen (TYLENOL EXTRA STRENGTH) 500 mg tablet Take 2 tablets by mouth every 6 hours as needed for pain. 30 tablet 0 05/23/2022 Active Problems Active Problems Problem Classification Problem Date Documented Date Episodic/Chronic Esophageal disorders (6 sources) Gastroesophageal reflux disease; Translations: [Gastro-esophageal reflux disease without esophagitis] Onset: 04-24-2022 04-24-2022 Chronic Immunizations and screening for infectious disease (3 sources) Vaccination needed; Translations: [Encounter for immunization] Onset: 07-24-2022 Episodic Mood disorders (13 sources) Bipolar disorder; Translations: [Bipolar disorder, unspecified] Onset: 03-08-2007 03-08-2007 Chronic Nausea and vomiting (1 source) Nausea and vomiting; Translations: [Nausea with vomiting, unspecified] Episodic Other male genital disorders (3 sources) Sebaceous cyst of penis; Translations: [Other specified disorders of penis] Chronic Other male genital disorders (1 source) Pain in penis; Translations: [Other specified disorders of penis] Chronic Other male genital disorders (2 sources) Disorder of penis; Translations: [Other specified disorders of penis] Chronic Other male genital disorders (6 sources) Lesion of penis; Translations: [Disorder of penis, unspecified] Onset: 04-24-2022 04-24-2022 Chronic Other male genital disorders (1 source) Disorder of penis, unspecified; Translations: [Penile lesion] Onset: 04-24-2022 Chronic Other male genital disorders (3 sources) Other specified disorders of penis; Translations: [Penile cyst] Onset: 03-16-2022 Chronic Other nervous system disorders (13 sources) Chronic pain; Translations: [Other chronic pain] Onset: 01-09-2018 01-09-2018 Chronic Residual codes; unclassified (1 source) Influenza-like symptoms; Translations: [Other general symptoms and signs] Episodic Past or Other Problems Problem Classification Problem Date Documented Da te Episodic/Chronic Abdominal hernia (13 sources) Left inguinal hernia ; Translations: [Unilateral inguinal hernia, without obstruction or gangrene, not specified as recurrent] Onset: 08-18-2015 08-18-2015 Episodic Other connective tissue disease (13 sources) Neuralgia; Translations: [Neuralgia and neuritis, unspecified] Onset: 08-09-2016 08-09-2016 Episodic Other non-traumatic joint disorders (13 sources) Hip pain; Translations: [Pain in left hip] Onset: 07-13-2016 07-13-2016 Episodic Other screening for suspected conditions (not mental disorders or infectious disease) (3 sources) Patient encounter status; Translations: [Encounter for screening for other disorder] Onset: 03-16-2022 Episodic Other skin disorders (6 sources) Eruption; Translations: [Rash and other nonspecific skin eruption] Onset: 04-24-2022 04-24-2022 Episodic Screening and history of mental health and substance abuse codes (6 sources) Ex-smoker; Translations: [Personal history of nicotine dependence] Onset: 04-24-2022 04-24-2022 Episodic Results Test Name Value Interpretation Reference Range Facil ity Vital Signs Date Time Vital Sign Value Performing Clinician Faci litadam 08-23-2022 10:02-0500 Body temperature 97.39 [degF] Lorna Orozco PA-C Work Phone: [facility] 08-23-2022 10:02-0500 Body weight 65.32 kg Lorna Orozco PA-C Work Phone: [facility] 08-23-2022 10:02-0500 Diastolic blood pressure 64 mm[Hg] Lorna Denbow PA-C Work Phone: [facility] 08-23-2022 10:02-0500 Heart rate 92 /min Lorna Denbow PA-C Work Phone: [facility] 08-23-2022 10:02-0500 Respiratory rate 18 /min Lorna Denbow PA-C Work Phone: [facility] 08-23-2022 10:02-0500 SaO2% (BldA) [Mass fraction] 98 % Lorna Denbow PA-C Work Phone: [facility] 08-23-2022 10:02-0500 Systolic blood pressure 108 mm[Hg] Lorna Denbow PA-C Work Phone: [facility] 07-24-2022 16:32-0500 Body temperature 97.5 [degF] Karina Praisler-Wood LAW OFFICE MANAGER.[employer] NURSE Work Phone: [facility] 07-24-2022 16:32-0500 Body weight 67.41 kg Karina Praisler-Wood LAW OFFICE MANAGER.[employer] NURSE Work Phone: [facility] 07-24-2022 16:32-0500 Diastolic blood pressure 74 mm[Hg] Karina Praisler-Wood LAW OFFICE MANAGER.[employer] NURSE Work Phone: [facility] 07-24-2022 16:32-0500 Heart rate 70 /min Karina Praisler-Wood LAW OFFICE MANAGER.[employer] NURSE Work Phone: [facility] 07-24-2022 16:32-0500 Respiratory rate 20 /min Karina Praisler-Wood LAW OFFICE MANAGER.[employer] NURSE Work Phone: [facility] 07-24-2022 16:32-0500 SaO2% (BldA) [Mass fraction] 100 % Karina Praisler-Wood LAW OFFICE MANAGER.[employer] NURSE Work Phone: [facility] 07-24-2022 16:32-0500 Systolic blood pressure 120 mm[Hg] Karina Praisler-Wood LAW OFFICE MANAGER.[employer] NURSE Work Phone: [facility] 04-05-2022 10:20-0400 Body height 167.6 cm Kevin Adams MD Work Phone: [facility] 04-05-2022 10:20-0400 Body weight 63.5 kg Kevin Adams MD Work Phone: [facility] 04-05-2022 10:20-0400 Diastolic blood pressure 73 mm[Hg] Kevin Adams MD Work Phone: [facility] 04-05-2022 10:20-0400 Heart rate 69 /min Kevin Adams MD Work Phone: [facility] 04-05-2022 10:20-0400 Systolic blood pressure 110 mm[Hg] Kevin Adams MD Work Phone: [facility] 03-16-2022 13:19-0400 Body height 167.6 cm Jackson Argueta MD Work Phone: [facility] 03-16-2022 13:19-0400 Body weight 66.04 kg Jackson Argueta MD Work Phone: [facility] 03-16-2022 13:19-0400 Diastolic blood pressure 76 mm[Hg] Jackson Argueta MD Work Phone: [facility] 03-16-2022 13:19-0400 Heart rate 75 /min Jackson Argueta MD Work Phone: [facility] 03-16-2022 13:19-0400 Systolic blood pressure 115 mm[Hg] Jackson Argueta MD Work Phone: [facility] 03-15-2022 13:52-0400 Body weight 63.64 kg Jere Ramsey MD Work Phone: [facility] 03-15-2022 13:52-0400 Diastolic blood pressure 68 mm[Hg] Jere Ramsey MD Work Phone: [facility] 03-15-2022 13:52-0400 Heart rate 78 /min Jere Ramsey MD Work Phone: [facility] 03-15-2022 13:52-0400 Respiratory rate 16 /min Jere Ramsey MD Work Phone: [facility] 03-15-2022 13:52-0400 Systolic blood pressure 110 mm[Hg] Jere Ramsey MD Work Phone: [facility] Encounters Encounter Date Encounter Type Care Provider Facility Start: 08-23-2022 End: 08-23-2022 ambulatory JERE RAMSEY Facility:[facility] Start: 08-23-2022 End: 08-23-2022 Patient encounter procedure Lorna Orozco PA-C Work Phone: [facility] Procedures Date Procedure Procedure Detail Performing Clinician Start: 04-05-2022 Urnls dip stick/tabl et rgnt auto w/o microscopy Bulk Order Provider Start: 03-16-2022 Urnls dip stick/tabl et rgnt auto w/o microscopy Jackson Argueta MD Work Phone: Start: 03-15-2022 [employer] COVI D-19 VACCINE, AGE 12+ YR ([place] TOP) Jere Ramsey MD Work Phone: Start: 02-10-2019 Adult depression screening assessment Jere Ramsey MD Work Phone: Plan of Treatment Date Care Activity Detail Author Start: 08-23-2022 End: 09-06-2022 Influenza virus A and B RNA and SARS-CoV-2 (COVID-19) N gene panel - Respiratory specimen by LORENZO with probe detection COVID WITH FLUA+B, ROUTINE Microbiology Routine Nausea and vomiting, unspecified vomiting type Flu-like symptoms Expected: 08/23/2022, Expires: 09/06/2022 [facility] Work Phone: Immunizations Immunization Date Immunization Notes Care Provider Fa cility 03-15-2022 COVID-19 vaccine, ag e 12+ yr (PFIZER-BIONTECH - [place]) Jere Ramsey MD Work Phone: [facility] 02-21-2007 diphtheria and tetan us toxoids, adsorbed for pediatric use Jere Ramsey MD Work Phone: [facility] Work Phone: Payers Date Payer Category Payer Medicaid MEDICAID [facility] MEDICAID [id number] 2022-Present [phone] [address] [place] [address] Medicaid [id number] 2022 Medicaid MEDICAID [facility] MEDICAID [id number] 2022-Present [phone] [address] [place] [address] Medicaid [id number] 2022 Medicaid [id number] Social History Date Type Detail Facility Start: 11-26-2015 End: 04-24-2022 Tobacco smoking status NHIS Ex-smoker [facility] History of tobacco use Cigar Smoker [facility] Start: 11-26-2015 End: 04-24-2022 Tobacco use and exposure Former smokeless tobacco user [facility] Start: 03-15-2022 End: 08-23-2022 Alcohol intake Current drinker of alcohol (finding) [facility] Start: 08-18-2015 History SDOH Alcohol Comment occasional [facility] Start: 08-18-2015 End: 04-24-2022 Tobacco Comment electronic cigarettes - occasional [facility] Start: 1980 Sex Assigned At Not on file [facility] Start: 03-05-2022 End: 05-23-2022 Exposure to SARS-CoV-2 (event) Not sure [facility] History of tobacco use Current smoker [facility] Start: 07-14-2022 End: 07-24-2022 Exposure to SARS-CoV-2 (event) Yes [facility] Clinical Notes 03-15-2022 to 08-23-2022 Patient InstructionsLorna Orozco PA-C - 08/23/2022 10:17 AM ESTTelephone Encounter - Leslie Griffith - 07/25/2022 10:08 AM ESTTelephone Encounter - Tonja Saldivar APRN.CNP - 07/25/2022 9:45 AM EST Note Date & Type Note Facility 08-23-2022 Influenza virus A and B RNA and SARS-CoV-2 (COVID-19) N gene panel LORENZO+probe (Resp) COVID 19 RESULT: SARS-CoV-2 (Agent of COVID-19) Not Detected by RT-PCR or equivalent method. re [id number] (MICHEAL)_EUA This test was developed and its performance characteristics determined by [facility]'s [facility] Pathology and Laboratory [facility] [place]. This test has been authorized by FDA under an Emergency Use Authorization (EUA). This test has been validated in accordance with the FDA's Guidance Document Policy for Diagnostics Testing in Laboratories Certified to Perform High Complexity Testing under CLIA prior to Emergency use Authorization for Coronavirus Disease 2019 during the Public Health Emergency issued on November 01, 2019. Test performed by [facility], [facility] Pathology [facility] Laboratory [facility] [place], [address] [place] [address]. INFLUENZA A PCR: Positive for Influenza A by RT-PCR INFLUENZA B PCR: Negative for Influenza B by RT-PCR [facility] documented [facility] this [facility] Diagnosis Screening for genitourinary condition- Primary Screening for other and unspecified genitourinary condition Sebaceous cyst of penis [facility] Diagnosis Sebaceous cyst of penis- Primary Penile pain Unspecified disorder of penis [facility] this [facility] Diagnosis Screening for genitourinary condition Screening for other and unspecified genitourinary condition Penile cyst Other specified disorder of penis [facility] Diagnosis Penile cyst- Primary Other specified disorder of penis Penile cyst Other specified disorder of penis [facility] Diagnosis Penile cyst- Primary Other specified disorder of penis Penile cyst Other specified disorder of penis [facility]* Diagnosis Screening for STD (sexually transmitted disease)- Primary Screening examination for venereal disease documented in this encounter [facility]* Diagnosis Flu-like symptoms- Primary Other general symptoms Nausea and vomiting, unspecified vomiting type documented in this encounter [facility] Summary Purpose Family History No Family History Records FoundNo Family History Records Found Advance Directives No Advanced Directives Records FoundNo Advanced Directives Records Found Reason for Referral Specialty Diagnoses / Procedures Referred By Contac t Referred To Contact Urology Diagnoses Sebaceous cyst of penis Procedures CONSULT TO UROLOGY OFFICE/OUTPATIENT [facility] 60-74 MINUTES Jere Ramsey MD [address] [place] [address] Referral ID Status Reason Start Date Expiration Date Visits Requested Visits Authorized [id number] Authorized PCP Requested Referral 03/15/2022 03/15/2023 1 1 Specialty Diagnoses / Procedures Referred By Contac t Referred To Contact Urology Diagnoses Sebaceous cyst of penis Procedures CONSULT TO UROLOGY OFFICE/OUTPATIENT [facility] 60-[place] [address] [place] [address] Referral ID Status Reason Start Date Expiration Date Visits Requested Visits Authorized [id number] Authorized PCP Requested Referral 03/16/2022 03/16/2023 1 1 Specialty Diagnoses / Procedures Referred By Contac t Referred To Contact Dermatology Diagnoses Sebaceous cyst of penis Procedures [place] [address] [place] [address] Referral ID Status Reason Start Date Expiration Date Visits Requested Visits Authorized [id number] Ref Not Required PCP Requested Referral 03/16/2022 03/16/2023 1 1 Specialty Diagnoses / Procedures Referred By Contac t Referred To Contact Diagnoses Penile cyst Procedures REFER TO PACC - PRE ANESTHESIA CONSULTATION CLINIC OFFICE/OUTPATIENT [facility] 60-74 MINUTES Kevin Adams MD [address] [place] [address] Referral ID Status Reason Start Date Expiration Date Visits Requested Visits Authorized [id number] Authorized PCP Requested Referral 05/10/2022 04/09/2023 1 1 Health Concerns Infection Onset Date Last Indicated Resolved Time COVID-19 Rule-Out 08/23/2022 08/23/2022 Additional Source Comments (unrecognized sect ion and content) No Status Records FoundNo Status Records Found INFORMATION SOURCE (unrecogn ized section and content) DATE CREATED AUTHOR AUTHOR'S ORGANIZ ATION 08/26/2022 [facility] Source Comments (unrecognize d section and content) In the event this informatio n is protected by the Federal Confidentiality of Alcohol and Drug Abuse Patient Records regulations: The Federal rules restrict any use of the information to criminally investigate or prosecute any alcohol or drug abuse patient.[facility] the event this information is protected by the Federal Confidentiality of Alcohol and Drug Abuse Patient Records regulations: The Federal rules restrict any use of the information to criminally investigate or prosecute any alcohol or drug abuse patient.[facility] the event this information is protected by the Federal Confidentiality of Alcohol and Drug Abuse Patient Records regulations: The Federal rules restrict any use of the information to criminally investigate or prosecute any alcohol or drug abuse patient.[facility] the event this information is protected by the Federal Confidentiality of Alcohol and Drug Abuse Patient Records regulations: The Federal rules restrict any use of the information to criminally investigate or prosecute any alcohol or drug abuse patient.[facility] the event this information is protected by the Federal Confidentiality of Alcohol and Drug Abuse Patient Records regulations: The Federal rules restrict any use of the information to criminally investigate or prosecute any alcohol or drug abuse patient.[facility] the event this information is protected by the Federal Confidentiality of Alcohol and Drug Abuse Patient Records regulations: The Federal rules restrict any use of the information to criminally investigate or prosecute any alcohol or drug abuse patient.[facility] the event this information is protected by the Federal Confidentiality of Alcohol and Drug Abuse Patient Records regulations: The Federal rules restrict any use of the information to criminally investigate or prosecute any alcohol or drug abuse patient.[facility] the event this information is protected by the Federal Confidentiality of Alcohol and Drug Abuse Patient Records regulations: The Federal rules restrict any use of the information to criminally investigate or prosecute any alcohol or drug abuse patient.[facility] the event this information is protected by the Federal Confidentiality of Alcohol and Drug Abuse Patient Records regulations: The Federal rules restrict any use of the information to criminally investigate or prosecute any alcohol or drug abuse patient.[facility] the event this information is protected by the Federal Confidentiality of Alcohol and Drug Abuse Patient Records regulations: The Federal rules restrict any use of the information to criminally investigate or prosecute any alcohol or drug abuse patient.[facility] the event this information is protected by the Federal Confidentiality of Alcohol and Drug Abuse Patient Records regulations: The Federal rules restrict any use of the information to criminally investigate or prosecute any alcohol or drug abuse patient.[facility] the event this information is protected by the Federal Confidentiality of Alcohol and Drug Abuse Patient Records regulations: The Federal rules restrict any use of the information to criminally investigate or prosecute any alcohol or drug abuse patient.[facility] the event this information is protected by the Federal Confidentiality of Alcohol and Drug Abuse Patient Records regulations: The Federal rules restrict any use of the information to criminally investigate or prosecute any alcohol or drug abuse patient.[facility] Reason for Visit (unrecogniz ed section and content) Reason Comments Appointment Reason Comments Information Reason Comments Consult Specialty Diagnoses / Procedures Referred By Contac t Referred To Contact Urology Diagnoses Sebaceous cyst of penis Procedures CONSULT TO UROLOGY OFFICE/OUTPATIENT [facility] 60-74 MINUTES Jere Ramsey MD [address] [place] [address] Referral ID Status Reason Start Date Expiration Date V isits Requested Visits Authorized [id number] Closed PCP Requested Referral 03/15/2022 03/15/2023 1 1 Reason Comments Consult Specialty Diagnoses / Procedures Referred By Contac t Referred To Contact Urology Diagnoses Sebaceous cyst of penis Procedures CONSULT TO UROLOGY OFFICE/OUTPATIENT [facility] MDM 60-[place] [address] [place] [address] Referral ID Status Reason Start Date Expiration Date V isits Requested Visits Authorized [id number] Closed PCP Requested Referral 03/16/2022 03/16/2023 1 1 Reason Comments Patient Question Reason Comments STD No symptoms, wants t ested for everything x 1 week Reason Comments Results Reason Comments Nausea & Vomiting diarrhea,weakness an d sweating x 1 day, flu exposure Care Teams (unrecognized sec tion and content) [employer] Architect Relationship Specialty Start Date End Date Jere Ramsey MD [address] [facility] [place] [address] PCP - General Family Practice 05/16/16 [employer] Relationship Specialty Start Date End Date Jere Ramsey MD [address] [facility] [place] [address] PCP - General Family Practice 05/16/16 [employer] Relationship Specialty Start Date End Date Jere Ramsey MD [address] [facility] [place] [address] PCP - General Family Practice 05/16/16 [employer] Relationship Specialty Start Date End Date Jeer Ramsey MD [address] [facility] [place] [address] PCP - General Family Practice 05/16/16 [employer] Relationship Specialty Start Date End Date Jere Ramsey MD [address] [facility] [place] [address] PCP - General Family Practice 05/16/16 [employer] Architect Relationship Specialty Start Date End Date Jere Ramsey MD [address] [facility] [place] [address] PCP - General Family Practice 05/16/16 [employer] Architect Relationship Specialty Start Date End Date Jere Ramsey MD [address] [facility] [place] [address] PCP - General Family Practice 05/16/16 [employer] Architect Relationship Specialty Start Date End Date Jere Ramsey MD [address] [facility] [place] [address] PCP - General Family Medicine 05/16/16 [employer] Architect Relationship Specialty Start Date End Date Jere Ramsey MD [address] [facility] [place] [address] PCP - General Family Medicine 05/16/16 [employer] Relationship Specialty Start Date End Date Jere Ramsey MD [address] [place], [place] [id number] PCP - General Family Medicine 05/16/16 [employer] Relationship Specialty Start Date End Date Jere Ramsey MD [address] [place] [address] PCP - General Family Medicine 05/16/16 FOR RECORDS PERTAINING TO PATIENTS WHO ARE OR HAVE BEEN ENROLLED IN A CHEMICAL DEPENDENCY/SUBSTANCEABUSE PROGRAM, SOME INFORMATION MAY BE OMITTED. This clinical summary was aggregated from multiple sources. Caution should be exercised in using it in the provision of clinical care. This summary normalizes information from multiple sources, and as a consequence, information in this document may materially change the coding, format and clinical context of patient data. In addition, data may be omitted in some cases. CLINICAL DECISIONS SHOULD BE BASED ON THE PRIMARY CLINICAL RECORDS. [facility] [employer] [facility]. provides no warranty or guarantee of the accuracy or completeness of information in this document.
[2023-11-05 21:01] LABS: AST(SGOT) 14 U/L (15-37); Alanine Aminotransfer ALT/SGPT 18 U/L (16-61); Albumin, Serum 4.7 g/dL (3.2-5.0); Alkaline Phosphatase 110 U/L (45-117); Anion Gap 12 (5-15); BUN 39 mg/dL (7-18); BUN/Creat Ratio 18.2 RATIO (10-20); Calcium,Total 11.6 mg/dL (8.5-10.1); Chloride 96 mmol/L (98-107); Creatinine, Serum 2.14 mg/dL (0.70-1.30); EST Glomerular Filtration Rate 36 mL/min (>60); Est Glom Filt Rate - Afr Amer 44 mL/min (>60); Estimated Creatinine Clearance 40.58 ml/min; Globulin 4.6 g/dL (2.2-4.2); Glucose 153 mg/dL (74-106); Lipase 43 U/L (13-75); Potassium 3.3 mmol/L (3.5-5.1); Protein, Total 9.3 g/dL (6.4-8.2); Sodium Level 135 mmol/L (136-145)
--- NOTE | 2023-11-05 21:16 | CT_ITS ---
INDICATION: Epigastric pain with nausea and vomiting EXAMINATION: CT ABDOMEN AND PELVIS WITHOUT CONTRAST - CT Abdomen And Pelvis W/O Contrast Injection TECHNIQUE: Helically acquired images were obtained of the abdomen and pelvis without oral or IV contrast. A radiation dose optimization technique was used for this scan. IV Contrast dosage and agent: None. Oral contrast: None. COMPARISON: 07/28/2014 FINDINGS: LOWER CHEST: Lung bases are clear. No cardiomegaly or pericardial effusion. LIVER: Homogeneous. No focal mass. GALLBLADDER AND BILIARY TREE: No calcified gallstones. No gallbladder distension or wall edema. No intra- or extrahepatic biliary ductal dilation. PANCREAS: No focal cystic or solid mass. SPLEEN: Normal size without focal cystic or solid mass. ADRENAL GLANDS: No nodules. KIDNEYS AND URETERS: Nonobstructing left renal calculus. No hydronephrosis bilaterally. PERITONEUM: No ascites or free air. BOWEL: Normal appendix. No stomach or bowel distension. No focal inflammatory change. Diffusely increased colonic fecal burden. LYMPH NODES: No enlarged mesenteric or retroperitoneal lymph nodes. VESSELS: Aorta is non-dilated. URINARY BLADDER: Unremarkable. REPRODUCTIVE ORGANS: No pelvic masses. ABDOMINAL WALL: No discrete abdominal or pelvic wall hernia. BONES: No acute or aggressive abnormality. CT/Abdomen/Pelvis without Cont IMPRESSION: No acute findings in the abdomen or pelvis. Colonic fecal burden consistent with clinical constipation. Electronically Signed: Luc Wolf MD at 22:15 [facility] ,
[2023-11-05 21:33] LABS: Absolute Lymphocyte Count 1.19 X10^3/uL (0.83-4.51); Absolute Neutrophil Count 11.4 X10^3/uL (2.0-7.7); Basophil# 0.04 X10^3/uL; Basophil% 0.3 % (0-1); Eosinophil# 0.02 X10^3/uL; Eosinophils% 0.1 % (0-5); Hematocrit 47.6 % (40-54); Hemoglobin 16.3 g/dL (13.0-16.5); Lymphocyte # 1.19 X10^3/ul (0.83-4.51); Lymphocyte % 8.6 % (19-41); Mean Corp Hgb Conc 34.2 g/dL (32-36); Mean Corpuscular Hgb 29.5 pg (27.0-32.0); Mean Corpuscular Volume 86.2 fL (80-94); Monocyte# 1.16 X10^3/uL; Monocyte% 8.4 % (0-10); NRBC Flagged by Analyzer 0 % (0-5); Neutrophil # 11.36 X10^3/uL (2.7-7.7); Neutrophil % 82.2 % (47-70); POSITIVE COUNT YES; Platelet Count 252 K/mm3 (150-450); RBC Distribution Width CV 12.1 % (11.6-14.6); RBC Distribution Width SD 38.2 fl (35.1-43.9); Red Blood Count 5.52 M/mm3 (4.6-6.2); White Blood Count 13.8 K/mm3 (4.4-11.0)
[2023-11-05 21:47] LABS: Differential Comment SCANNED; Differential Indicated SCAN CRITERIA MET
[2023-11-05 22:59] VITALS: BP 106/64; PULSE 74; RESP 17; O2SAT 100
[2023-11-05 23:34] LABS: Mucous, Urine 0 SEEN /hpf (<or=2+); Red Blood Cells-Urine 0 SEEN /hpf (0-5); Squamous Epithelial Cells - UA 0 SEEN /hpf (0-5); White Blood Cells 0 SEEN /hpf (0-5)
[2023-11-05 23:37] LABS: Glucose, Dipstick Normal (Normal); Ketone-Dipstick 50 mg/dl (Negative); Leukocyte Esterase-Dipstick 25 /ul (Negative); Nitrite-Dipstick Negative (Negative); Occult Blood-Urine 10 /ul (Negative); Protein-Dipstick 30 mg/dl (Negative); Specific Gravity, Urine 1.025 (1.002-1.030)
[2023-11-05] MEDS: Acetaminophen 500 MG Tablet 1000 MG PO (23:47)
[2023-11-05] MEDS: Doxycycline 100 MG CAPSULE PO (23:47)
[2023-11-05 23:58] LABS: Color, Urine Amber (Yellow); Urine Clarity Cloudy (Clear); Urine Urobilinogen 1 mg/dl (Normal)
[2023-11-06] LABS: Urine Bilirubin Dipstick 1 mg/dL (Negative)
[2023-11-06 00:21] LABS: Bacteria 2+ /hpf (None Seen); Hyaline Cast 0-5 SEEN /lpf (0-5)
== END 2023-11-06 00:24 | disposition home or self-care (01) ==
PROVIDERS: Physician Assistant; Emergency Provider Emergency Medicine; PCP Family Medicine; Visit Provider Emergency Medicine
DX: N17.9 Acute kidney failure, unspecified (principal); L02.01 Cutaneous abscess of face; E86.0 Dehydration; R11.2 Nausea with vomiting, unspecified; R10.13 Epigastric pain; Z87.891 Personal history of nicotine dependence
CPT/HCPCS: 36415; 74176; 80053; 81001; 83690; 85025; 96374; 96375; 99282; J7030; A4216; J2405

== ENCOUNTER 2024-10-16 10:10 | Emergency (ER) | payer OTHER, SELFPAY ==
[2024-10-16 10:11] VITALS: BP 131/100; PULSE 83; RESP 16; TEMP 35.8; O2SAT 100; BMI 21.1
--- NOTE | 2024-10-16 10:29 | EX.ED.DYSGE1 ---
HPI History of Present Illness Chief Complaint: Nausea/Vomiting/Diarrhea Detail of Chief Complaint: Vomiting and diarrhea Informant: patient Narrative Narrative: Patient presents to the emergency department complaint of not feeling well x 4 days. Patient states he started vomiting 4 days ago. Patient also states that he is coughing and then vomiting. His daughter also is sick at home and she tested positive for influenza A. Patient is unsure if he has had a fever as he has not checked his temperature. He has had about 2 episodes of watery stool per day. He describes diffuse abdominal cramping. Patient states that he was seen in the emergency department about a year ago for similar presentation and required fluids and IV nausea medication. No prior abdominal surgeries. PFSH PFSH Medical History no medical history Home Medications ?Medication ?Instructions ?Recorded ?Last Taken ?Type dicyclomine 10 mg capsule 20 mg (2 x 10 mg) PO TIDAC #20 10/16/24 Unknown Rx CAPSULES ondansetron 4 mg disintegrating 4 mg PO Q8H PRN PRN Nausea #10 tabs 10/16/24 Unknown Rx tablet Allergy/AdvReac Type Severity Reaction Status Date / Time amoxicillin Allergy Rash Verified 10/16/24 10:12 red dye Allergy Rash Verified 10/16/24 10:12 Social History household members: none Smoking Status: Former smoker alcohol intake: current ROS ROS ED Review of Systems ROS Unobtainable: other Constitutional Constitutional ED: Reports lethargy; Denies chills, fever(s), sweats or weight loss Eyes Eyes: Denies blurry vision, change in vision or diplopia ENT ENT ED: Denies rhinorrhea or sore throat Cardiovascular Cardiovascular: Denies chest pain, orthopnea or racing heartbeat Respiratory/Chest Respiratory/Chest: Reports cough, dyspnea and dyspnea on exertion; Denies orthopnea or sputum Gastrointestinal Gastrointestinal: Reports abdominal pain, diarrhea, nausea and vomiting Genitourinary Genitourinary ED: Denies dysuria, hematuria or urinary frequency Musculoskeletal Musculoskeletal: Denies arthralgias, back pain, myalgias or neck pain Integumentary Denies abscess, Abrasions or rash Neurologic Neurologic: Denies headache(s) or weakness Psychiatric Psychiatric: Denies anxiety, depression or suicidal thoughts Endocrine Endocrinology: Denies polydipsia, polyphagia or polyuria Hematologic/Lymphatic Hematologic/Lymphatic: Denies easy bleeding, easy bruising or lymphadenopathy Allergic/Immunologic Allergic/Immunologic ED: Denies mouth swelling, tongue swelling or urticaria EXAM Physical Exam Const Vital Signs: 10/16/24 10:11 10/16/24 11:56 Temperature 96.5 F L Temperature Source Temporal Pulse Rate 83 87 Respiratory Rate 16 18 Blood Pressure 131/100 H 130/89 H Blood Pressure Mean 110 102 Pulse Ox 100 97 Oxygen Delivery Method Room Air Room Air Positive well nourished and well developed General Appearance ED: well developed and NAD HEENT Reports TM's clear and moist mucous membranes normocephalic and atraumatic; Negative for trauma or tenderness Tympanic Membrane ED: Yes TM's clear Eyes PERRL and EOMs intact bilaterally General Eye ED: Negative for pale conjunctiva or scleral icterus Neck no lymphadenopathy, supple and no JVD General: Negative for tenderness Chest Wall inspection of chest normal and palpation of chest normal Chest: Negative for tenderness Resp normal respiratory effort and clear to auscultation bilaterally Effort and Inspection: Negative for respiratory distress or pain with movement Auscultation: Negative for rhonchi, wheezes or diminished lung sounds Cardio regular rate, regular rhythm, S1 normal heart sound, S2 normal heart sound and no murmurs Peripheral Pulses: pulses 2+ throughout GI normal to inspection, nondistended, normoactive bowel sounds, soft to palpation, non-distended and no masses GI Narrative: Mild diffuse tenderness. There is no rebound, rigidity, or peritoneal signs. No mass palpated Back/Spine no CVA tenderness and no thoracic nor lumbar tenderness Extremity normal to inspection General Extremety ED: Negative for edema General Extremity: Negative for edema Neuro oriented x3, CN's II-XII intact bilaterally, no sensory deficits noted and gait normal Sensorium / Orientation: awake, alert, oriented to person, oriented to place and oriented to time Motor Exam: strength 5/5 throughout and strength abnormal Psych mental status grossly normal Skin no rashes or lesions noted and no wounds MDM MDM MDM Narrative Medical decision making narrative: Patient presents with vomiting and cough x 4 days. Also with some diarrhea. His daughter tested positive for influenza A. Complaining diffuse abdominal discomfort. CBC with differential obtained for white count of 10.9 with hemoglobin 18.6 and platelet count of 355. Chemistries unremarkable. Other than a slightly elevated potassium of 5.3 however he does have some hemolysis and I suspect it is related to that. BUN was 40 and creatinine 1.47. LFTs showed minimal elevation in the AST at 62 ALT was normal at 40 and alk phos was normal at 81. Lipase was normal at 53. While in the department he had a liter of fluid given. He was given Zofran and Protonix. He had no further vomiting and was able to tolerate a p.o. challenge. COVID flu and RSV testing was negative. At this point I feel he can be discharged to home. I do not feel any imaging is indicated. Patient will be given a prescription for Zofran and Bentyl. Advised to return if persistent vomiting, dehydration, worsening pain, or condition should worsen anyway. Patient also noted that he has history of gastroesophageal reflux disease and history of intractable nausea and vomiting/cyclic vomiting syndrome. Lab Data Labs: Laboratory Results - last 24 hr 10/16/24 10:20 WBC 10.9 RBC 6.24 H Hgb 18.6 H* Hct 53.9 MCV 86.4 MCH 29.8 MCHC 34.5 RDW Std Deviation 39.8 RDW Coeff of Alex 12.7 Plt Count 355 MPV 11.5 Immature Gran % (Auto) 0.500 Neut % (Auto) 68.3 Lymph % (Auto) 14.1 L [place] % (Auto) 16.8 H Eos % (Auto) 0.0 Baso % (Auto) 0.3 Absolute Neuts (auto) 7.5 Absolute Lymphs (auto) 1.54 Nucleated RBC % 0 Sodium 132 L Potassium 5.3 H Chloride 90 L Carbon Dioxide 30.0 Anion Gap 11 BUN 40 H Creatinine 1.47 H Estim Creat Clear Calc 54.50 Est GFR (MDRD) Af Amer 67 Est GFR (MDRD) Non-Af 55 L BUN/Creatinine Ratio 27.2 H Glucose 153 H Calcium 11.0 H Total Bilirubin 0.80 AST 62 H ALT 40 Alkaline Phosphatase 81 Total Protein 9.4 H Albumin 4.8 Globulin 4.6 H Albumin/Globulin Ratio 1.0 Lipase 53 L Discharge Plan Triage Chief Complaint: Nausea/Vomiting/Diarrhea ED Provider: Maria Fernanda Song Dx/Rx/DC Orders Clinical Impression: Viral gastroenteritis Instructions: ED Gastroenteritis, Viral (Adult) Prescriptions: New ondansetron 4 mg tablet,disintegrating 4 mg PO Q8H PRN PRN (Reason: Nausea) Qty: 10 0RF dicyclomine 10 mg capsule 20 mg PO TIDAC Qty: 20 0RF Primary Care Provider: Rajesh Stahl Referrals: Friend [Other] - 5-7 Days Rajesh Stahl MD [Primary Care Provider] - 3-5 Days Print Language: Rwandan
[2024-10-16] MEDS: Ondansetron 4 MG/2 ML Vial IV (10:31)
[2024-10-16] MEDS: 0.9% Normal Saline (1000mL) 1,000 ML 999 ML IV (10:31)
[2024-10-16 10:38] LABS: Absolute Lymphocyte Count 1.54 X10^3/uL (0.83-4.51); Absolute Neutrophil Count 7.5 X10^3/uL (2.0-7.7); Basophil# 0.03 X10^3/uL; Basophil% 0.3 % (0-1); Hematocrit 53.9 % (40-54); Hemoglobin 18.6 g/dL (13.0-16.5); Lymphocyte # 1.54 X10^3/ul (0.83-4.51); Lymphocyte % 14.1 % (19-41); Mean Corp Hgb Conc 34.5 g/dL (32-36); Mean Corpuscular Hgb 29.8 pg (27.0-32.0); Mean Corpuscular Volume 86.4 fL (80-94); Mean Platelet Vol. 11.5 fl (6.2-12.0); Monocyte# 1.84 X10^3/uL; Monocyte% 16.8 % (0-10); NRBC Flagged by Analyzer 0 % (0-5); Neutrophil # 7.48 X10^3/uL (2.7-7.7); Neutrophil % 68.3 % (47-70); POSITIVE DIFFERENTIAL YES; Platelet Count 355 K/mm3 (150-450); RBC Distribution Width CV 12.7 % (11.6-14.6); RBC Distribution Width SD 39.8 fl (35.1-43.9); Red Blood Count 6.24 M/mm3 (4.6-6.2); White Blood Count 10.9 K/mm3 (4.4-11.0)
[2024-10-16 10:41] LABS: Differential Indicated SCAN CRITERIA MET
[2024-10-16] MEDS: Pantoprazole Sodium 40 MG in 0.9% Normal Saline (100mL MB+) 100 ML 330 MG IV (10:54)
[2024-10-16 11:02] LABS: AST(SGOT) 62 U/L (15-37); Alanine Aminotransfer ALT/SGPT 40 U/L (16-61); Albumin, Serum 4.8 g/dL (3.2-5.0); Alkaline Phosphatase 81 U/L (45-117); Anion Gap 11 (5-15); BUN 40 mg/dL (7-18); BUN/Creat Ratio 27.2 RATIO (10-20); Chloride 90 mmol/L (98-107); Creatinine, Serum 1.47 mg/dL (0.70-1.30); EST Glomerular Filtration Rate 55 mL/min (>60); Est Glom Filt Rate - Afr Amer 67 mL/min (>60); Globulin 4.6 g/dL (2.2-4.2); Glucose 153 mg/dL (74-106); Lipase 53 U/L (73-393); Potassium 5.3 mmol/L (3.5-5.1); Protein, Total 9.4 g/dL (6.4-8.2); Sodium Level 132 mmol/L (136-145)
[2024-10-16 11:56] VITALS: BP 130/89; PULSE 87; RESP 18; O2SAT 97
[2024-10-16 13:44] VITALS: BP 115/78; PULSE 64; RESP 18; TEMP 36.9; O2SAT 99
== END 2024-10-16 13:46 | disposition home or self-care (01) ==
PROVIDERS: Emergency Provider Emergency Medicine; PCP Family Medicine; Visit Provider Emergency Medicine
DX: A08.4 Viral intestinal infection, unspecified (principal); Z88.0 Allergy status to penicillin; Z87.891 Personal history of nicotine dependence
CPT/HCPCS: 80053; 83690; 85025; 87631; 96365; 96375; 99283; A4216; J2405

== ENCOUNTER 2024-12-26 17:44 | Emergency (ER) | payer OTHER, SELFPAY ==
[2024-12-26 17:47] VITALS: BP 110/73; PULSE 61; RESP 14; TEMP 36.6; O2SAT 100; BMI 23.6
--- NOTE | 2024-12-26 18:27 | ED.RN ---
PTS DOGS WERE FIGHTING AND HE BROKE THEM PART AND NOW HAS AN INJURY/LAC TO THE RIGHT PINKY FINGER. STATES DOGS ARE UP TO DATE ON VACCINES
--- NOTE | 2024-12-26 18:52 | EX.ED.UPPERE ---
HPI History of Present Illness Chief Complaint: Bite Narrative Narrative: 44-year-old male who denies significant past medical history presents with injury to his right fifth digit that he sustained prior to arrival. He states that his dogs were fighting and he went to break him up and he got bit in the tip of the fifth digit of his right hand. He is right-hand dominant. He is unsure of his last tetanus immunization. His dogs immunizations are current however. He denies other injury. He states that the skin is flapping so he presents mainly for sutures. PFSH PFSH Home Medications ?Medication ?Instructions ?Recorded ?Last Taken ?Type dicyclomine 10 mg capsule 20 mg (2 x 10 mg) PO TIDAC #20 10/16/24 Unknown Rx CAPSULES ondansetron 4 mg disintegrating 4 mg PO Q8H PRN PRN Nausea #10 tabs 10/16/24 Unknown Rx tablet cephalexin 500 mg capsule 500 mg PO BID #14 caps 12/26/24 Unknown Rx clindamycin HCl 300 mg capsule 300 mg PO Q6H #40 CAPSULES 12/26/24 Unknown Rx (Cleocin HCl) oxycodone 5 mg tablet 5 mg PO Q6H PRN pain 3 days #12 12/26/24 Unknown Rx tabs Allergy/AdvReac Type Severity Reaction Status Date / Time amoxicillin Allergy Rash Verified 12/26/24 17:49 red dye Allergy Rash Verified 12/26/24 17:49 Social History household members: none Smoking Status: Current some day smoker tobacco type: pipe alcohol intake: current ROS ROS ED ROS Narrative Review of systems positive for laceration to tip of right fifth digit. No other injury. EXAM Physical Exam Narrative Exam Narrative: GCS 15. ABCs intact. Nontoxic-appearing. Cardiovascular examination regular rate and rhythm. Lungs clear to auscultation bilaterally. Inspection of the fifth digit tip does show a laceration on both sides of the nailbed of the tip of his fifth digit, no active bleeding. No bony tenderness. Const Vital Signs: 12/26/24 17:47 Temperature 97.9 F Temperature Source Oral Pulse Rate 61 Respiratory Rate 14 Blood Pressure 110/73 Blood Pressure Mean 85 Pulse Ox 100 Oxygen Delivery Method Room Air MDM MDM MDM Narrative Medical decision making narrative: Differential diagnosis includes but not limited to laceration of fingertip versus open fracture. Patient states he does not have bony tenderness, but I stressed the importance of x-ray to look for foreign body as well. As this is on the fingertip, he has partial avulsion. I discussed with him that complete closure of the laceration should not be performed on the hand, but he is agreeable that he will be started on antibiotics in the form of clindamycin secondary to an amoxicillin allergy, and 2 sutures will be placed to hold the fingertip in place. He declined splinting afterwards initially. On my independent interpretation of his x-ray of the left fifth digit, there is a tuft fracture noted that is comminuted. I reviewed the radiology report which confirms my independent interpretation. I discussed with the patient the high chance of infection with the open tuft fracture and he acknowledges an understanding currently. I discussed closure of the wound as I feel he needs loose approximation of the skin around the tip of the finger. He refused nail removal and nailbed repair as well. Procedure note: Left fingertip laceration was irrigated with Shur-Clens and saline, and lidocaine 1% was used first as a digital block which the patient states was ineffective, so local injection was used. 2 simple interrupted sutures were placed for skin approximation and the tissue lateral to the nailbed. Patient tolerated procedure well. He was placed in Vaseline gauze dressing by RN. I wrote him prescriptions for oxycodone, clindamycin, and Keflex, and stressed the importance of follow-up with plastics/hand surgery Dr. Cortes. RN states that initially patient refused splinting, but was convinced by his fianc?e to except the splint. He was told of the high risk of infection and once again the importance of follow-up. Return instructions to the emergency department were reviewed. Disposition is discharged home in stable condition. History & Record Review Discussion w/independent historian: Patient and Significant other Discharge Plan Triage Chief Complaint: Bite ED Provider: Urbano Cervantes Dx/Rx/DC Orders Clinical Impression: Dog bite, Open fracture of finger of right hand Instructions: ED Dog Bite, ED Fracture, Finger, Open Prescriptions: New oxycodone 5 mg tablet 5 mg PO Q6H PRN (Reason: pain) 3 Days Qty: 12 0RF clindamycin HCl [Cleocin HCl] 300 mg capsule 300 mg PO Q6H Qty: 40 0RF cephalexin 500 mg capsule 500 mg PO BID Qty: 14 0RF No Action ondansetron 4 mg tablet,disintegrating 4 mg PO Q8H PRN PRN (Reason: Nausea) Qty: 10 0RF dicyclomine 10 mg capsule 20 mg PO TIDAC Qty: 20 0RF Primary Care Provider: Rajesh Stahl Referrals: Rajesh Stahl MD [Primary Care Provider] - Suhail Cortes MD [Med Staff - Active Staff] - 12/29/24 Activity Restrictions/Additional Instructions: Antibiotics as directed. Is important for you to follow-up with hand surgery regarding your open fracture. Return with fever, new or worsening symptoms including drainage or pus from your fifth digit on her right hand. Print Language: Surinamese Disposition Disposition: Home, Self Care Discharge Date/Time: 12/26/24 20:48
--- NOTE | 2024-12-26 19:00 | RAD_ITS ---
EXAM: XR Right 5th fingers, 2 or More Views CLINICAL INDICATION: TRAUMA TECHNIQUE: Frontal, lateral and oblique views of the 5th fingers of the right hand. COMPARISON: No relevant prior studies available. FINDINGS: BONES/JOINTS: Comminuted mildly displaced fracture of the distal 5th phalanx. No dislocation. SOFT TISSUES: Soft tissue swelling. No radiopaque foreign body. RAD/Finger(s) Min 2 Views IMPRESSION: Comminuted mildly displaced fracture of the distal 5th phalanx. Reading Location: [id number]
[2024-12-26] MEDS: Lidocaine 1% (20 ml mdv) 20 ML Vial 10 ML INFILT (19:01)
[2024-12-26] MEDS: Diphth,Pertuss(Acell),Tet Vac 0.5 ML Vial IM (19:01)
[2024-12-26] MEDS: Clindamycin HCl 150 MG Capsule 300 MG PO (19:01)
[2024-12-26] MEDS: oxyCODONE 5 MG Tablet PO (20:17)
--- NOTE | 2024-12-26 20:42 | ED.RN ---
This RN was attempting to apply splint to pt's finger when pt refused splint. This RN educated pt it is important he wears the splint to reduce further injury to his already fractured finger. Pt stated It fucking hurts and this won't be staying on long. Pt's s/o encouraged pt he needed to let RN apply splint. Pt allowed this RN to apply splint. Oxycodone was administered po, this RN told pt we are still waiting on discharge papers and advised him not to drive home and let s/o drive home. Pt refused this, aware.
== END 2024-12-26 20:48 | disposition home or self-care (01) ==
PROVIDERS: Emergency Provider Emergency Medicine; PCP Family Medicine; Visit Provider Emergency Medicine
DX: S62.637B Displaced fracture of distal phalanx of left little finger, initial encounter for open fracture (principal); W54.0XXA Bitten by dog, initial encounter; F17.290 Nicotine dependence, other tobacco product, uncomplicated; Z88.0 Allergy status to penicillin; Z23 Encounter for immunization
CPT/HCPCS: 12001; 73140; 90715; 99283